=== PATIENT | female | born 1975 | race Caucasian/White ===

== ENCOUNTER 2020-01-17 08:25 | Emergency (ER) | payer OTHER ==
[~2020-01-17] VITALS: Ht 172.7 cm; Wt 81.8 kg
[2020-01-17 09:48] LABS: BASOPHILS % (AUTO) 0.5 % (0-1); EOSINOPHILS % (AUTO) 0.6 % (0-6); LYMPHOCYTES # (AUTO) 1.3 X10'3 (1.1-4.8); MEAN CORPUSCULAR HEMOGLOBIN 28.7 PG (27.0-31.0); MEAN CORPUSCULAR HGB CONC 33.4 g/dL (33.0-36.5); MEAN PLATELET VOLUME 8.3 FL (7.4-10.4); MONOCYTES # (AUTO) 0.5 X10'3 (0-0.9); MONOCYTES % (AUTO) 7.8 % (2-12); NEUTROPHILS % (AUTO) 69.1 % (42-75); PLATELET COUNT 270 X10'3 (140-440); RED BLOOD COUNT 4.88 X10'6 (4.20-5.60); WHITE BLOOD COUNT 5.8 X10'3 (4.5-11.0)
[2020-01-17 10:00] VITALS: BP 104/76
[2020-01-17 10:06] LABS: ALANINE AMINOTRANSFERASE 22 U/L (12-78); ALBUMIN 3.9 G/DL (3.4-5.0); ALBUMIN/GLOBULIN RATIO 1.1 (1.1-1.5); ALKALINE PHOSPHATASE 83 IU/L (46-116); ANION GAP 6 (8-16); ASPARTATE AMINO TRANSFERASE 16 U/L (10-37); BILIRUBIN,TOTAL 0.4 MG/DL (0.1-1.0); BLOOD UREA NITROGEN 7 MG/DL (7-18); BUN/CREATININE RATIO 8.4 (6.6-38.0); CALCIUM 8.6 MG/DL (8.5-10.1); CHLORIDE 107 MMOL/L (99-107); CREATININE 0.83 MG/DL (0.40-0.90); GLUCOSE 92 MG/DL (70-104); SODIUM 142 MMOL/L (135-145); TOTAL CARBON DIOXIDE 28.8 MMOL/L (24-32); TOTAL PROTEIN 7.3 G/DL (6.4-8.2); eGFR 75 ML/MIN
[2020-01-17 10:07] LABS: POTASSIUM 4.2 MMOL/L (3.5-5.1)
[2020-01-17 10:12] LABS: PREOP HCG, QL SERUM NEGATIVE (NEGATIVE)
[2020-01-17 10:15] LABS: ETHANOL < 0.010 GM/DL (0.0-0.010)
[2020-01-17 10:21] LABS: HIV ANTIBODY 1&2 RAPID NON-REACTIVE (Neg)
[2020-01-17 10:42] LABS: CLARITY,URINE CLEAR (Clear); COLOR,URINE STRAW (Yellow); GLUCOSE, URINE NEGATIVE (Neg); KETONES,URINE NEGATIVE (Neg); LEUKOCYTE ESTERASE ,URINE NEGATIVE (Neg); NITRITES, URINE NEGATIVE (Neg); OCCULT BLOOD,URINE NEGATIVE (Neg); PROTEIN,URINE NEGATIVE (Neg); URINE HCG NEGATIVE (NEG); UROBILINOGEN,URINE 0.2 E.U/dL (0.2-1.0)
[2020-01-17 10:45] LABS: UA COLLECTION TYPE CLN CATCH MIDSTREAM
[2020-01-17 10:55] LABS: URINE AMPHETAMINE SCREEN NEGATIVE (Neg); URINE BARBITUATE SCREEN NEGATIVE (Neg); URINE BENZODIAZEPINES SCREEN NEGATIVE (Neg); URINE CANNABINOID SCREEN NEGATIVE (Neg); URINE COCAINE SCREEN NEGATIVE (Neg); URINE METHADONE SCREEN NEGATIVE (Neg); URINE OPIATE SCREEN NEGATIVE (Neg); URINE PHENCYCLIDINE SCREEN NEGATIVE (Neg)
[2020-01-19 05:13] LABS: RPR Non Reactive (Non Reactive)
== END 2020-01-17 11:12 | disposition home or self-care (01) ==
LOC: ER 08:26
DX: S50.811A Abrasion of right forearm, initial encounter (principal); F17.200 Nicotine dependence, unspecified, uncomplicated; Z56.0 Unemployment, unspecified; Z88.8 Allergy status to other drugs, medicaments and biological substances; X58.XXXA Exposure to other specified factors, initial encounter; Y93.89 Activity, other specified; Y92.89 Other specified places as the place of occurrence of the external cause; Y99.8 Other external cause status
CPT/HCPCS: 36415; 80053; 80305; 80320; 81003; 81025; 84443; 84703; 85025; 86592; 86703; 99283

== ENCOUNTER 2020-01-30 23:52 | Emergency (ER) | payer MEDICARE, OTHER ==
[~2020-01-30] VITALS: Ht 172.7 cm; Wt 81.8 kg
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
--- NOTE | 2020-01-31 01:14 | NUR ---
pt moved from room 10 to hallway 13
--- NOTE | 2020-01-31 01:28 | NUR ---
Note graciela in EDM - 01/31/20 at 0205 by FREDDY nitor going at 10mcg / min pt reports pain 4/10 bp at 199/100 increased nitro drip to 15mcg/ min infusing to the right ac patent without incident at this time pt plan of care updated and pt is awaiting a bed for admission
[2020-01-31] MEDS ORDERED: meclizine 12.5mg tablet PO ONE (04:50)
[2020-01-31] MEDS ORDERED: ONDA4TAB6 PO (04:50)
[2020-01-31] MEDS ORDERED: ondansetron 4mg rapidly disintigrating tab PO ONE (04:50)
[2020-01-31] MEDS ORDERED: MECL-159 PO (04:50)
[2020-01-31 05:06] VITALS: BP 107/68
== END 2020-01-31 05:07 | disposition home or self-care (01) ==
LOC: EEVIPCON 23:52 → ER 23:52
DX: R55 Syncope and collapse (principal); R42 Dizziness and giddiness; Z59.0 Homelessness; Z56.0 Unemployment, unspecified; Z91.040 Latex allergy status; Z79.899 Other long term (current) drug therapy; Z88.8 Allergy status to other drugs, medicaments and biological substances
CPT/HCPCS: 82948; 93005; 99283; J8597